=== PATIENT | female | born 1970 | race African-American/Black ===

== ENCOUNTER 2025-01-07 09:43 | Emergency (ER) | payer MEDICAID ==
[~2025-01-07] VITALS: Ht 165.1 cm; Wt 72.7 kg
--- NOTE | 2025-01-07 09:50 | ELECTROCARDIOGRAPH REPORT ---
[facility] Test Date: 2025-01-07 Test Time: 09:48:16 Pat Name: [facility] Department[facility]- [id number] Room: Gender: F [employer]: : 1970 Requested By: ANCELMO MARIE Order Number: [id number] Reading MD: Dr. Kofi Weaver Measurements Intervals [place] Rate: 98 P: 77 WA: 148 QRS: 57 QRSD: 85 T: 69 QT: 388 QTc: 496 Interpretive Statements Sinus rhythm Probable left atrial enlargement Anterior infarct, old Artifact in lead(s) I,II,III,aVR,aVL,aVF,V1,V2,V3,V4,V5,V6 and baseline wander in lead(s) V3 Electronically Signed On 01-17-2025 22:20:[address] Kofi Weaver Please click the below link to view image of tracing.
[2025-01-07 10:19] LABS: MEAN PLATELET VOLUME 8.3 FL (7.4-10.4); RED CELL DISTRIBUTION WIDTH 16.2 % (11.5-14.5)
--- NOTE | 2025-01-07 10:20 | Physician Documentation ---
History of Present Illness ~ Chief Complaint: Chest Pain Stated Complaint: CP Time Seen by MD: 10:13 HPI 54-year-old female presenting with acute onset chest pain that started about 20 minutes ago. She arrives here today along with a the questions. According states that they were driving from [place] to [employer] to go to the methadone clinic. While in the car the patient started developing chest pain. Patient states the pain is located in her left upper chest and radiates up into her neck. It is severe and debilitating. She also endorses some shortness of breath. Denies any fever, chills or any other associated symptoms. The patient recently had aortic surgery done at a different hospital a couple of months ago. Medication Reconciliation Allergies: Coded Allergies: No Known Allergies (Unverified , 01/07/25) Review of Systems All Other Systems at this time: Reviewed and Negative Physical Exam Vital Signs: Temperature: 97.2, Source: Oral, Heart Rate: 93, Respiratory Rate: 18, BP: 158/98, Pulse Oximetry: 100, Weight: 72.730 Physical Exam I have reviewed the triage vitals. CONST: Well developed and well nourished. In significant distress HENT: Head Atraumatic EYES: Pupils are equal, round and reactive to light. Normal conjunctiva NECK: Normal range of motion. Supple. CARDIO: Normal rate and regular rhythm. No murmurs, rubs, or gallops. S1, S2. PULM/CHEST: No respiratory distress. Lungs clear to auscultation. No wheeze ABD: Soft and nontender. Nondistended. Bowel sounds normal. No guarding. : Exam deferred MSK: No edema. No deformity. NEURO: Alert and oriented to person, place and time. Moving all extremities SKIN: Warm and dry. PSYCH: Anxious, tearful Progress Results/Orders Results/Orders Orders - ANCELMO MARIE MD Chest,Single View (01/07/25 09:46) Monitor (01/07/25 09:46) Saline Lock (01/07/25 09:46) Oxygen (01/07/25 09:46) Cta Aorta Disection (01/07/25 11:10) Completed Orders - ANCELMO MARIE MD Chest,Single View (01/07/25 09:46) Cbc/Diff (01/07/25 09:46) PBNP (01/07/25 09:46) Electrocardiogram (01/07/25 09:46) Hs Troponin I W Calculations (01/07/25 09:46) Hs Troponin I W Calculations (01/07/25 11:46) Morphine 4mg/Ml Inj. (Morphine Inj.) (01/07/25 10:15) Ondansetron Inj. (Zofran 4mg/2ml Vial) (01/07/25 10:15) Diazepam Inj (Valium Inj) (01/07/25 10:15) Aspirin 81mg Chew Tablet (Aspirin 81mg C (01/07/25 10:20) CMP (01/07/25 10:08) Diphenhydramine Inj (Benadryl Inj.) (01/07/25 10:45) Fentanyl/Pf (Fentanyl 0.05 Mg/Ml Syringe (01/07/25 10:45) Cta Aorta Disection (01/07/25 11:10) Normal Saline 500ml Iv Soln (Sodium Chlo (01/07/25 10:50) Fentanyl/Pf (Fentanyl 0.05 Mg/Ml Syringe (01/07/25 11:00) Iohexol 350mg/Ml 100ml (Omnipaque 350mg/ (01/07/25 10:57) Fentanyl/Pf (Fentanyl 0.05 Mg/Ml Syringe (01/07/25 10:58) Labetalol Inj. (Trandate 20 Mg/4ml Syrin (01/07/25 11:20) Normal Saline 250ml... W/Labetalol Inj. (01/07/25 11:45) Nicardipine-Ns 40mg/200ml Ivpb (Cardene- (01/07/25 11:50) Hydromorphone 1 Mg/Ml/Pf (Dilaudid Inj.) (01/07/25 11:50) Nicardipine-Ns 40mg/200ml Ivpb (Cardene- (01/07/25 12:05) Diazepam Inj (Valium Inj) (01/07/25 12:10) Haloperidol Lact. (Haldol) (01/07/25 12:25) Ketamine 10mg/Ml 20ml Inj (Ketamine 10mg (01/07/25 12:40) Lorazepam Inj (Ativan Inj) (01/07/25 14:20) Laboratory Tests Test 01/07/25 10:08 01/07/25 12:00 White Blood Count 5.9 Red Blood Count 4.40 Hemoglobin 11.4 L Hematocrit 36.0 Mean Corpuscular Volume 81.7 Mean Corpuscular Hemoglobin 25.9 L Mean Corpuscular Hemoglobin Concent 31.7 L Red Cell Distribution Width 16.2 H Platelet Count 264 Mean Platelet Volume 8.3 Neutrophils (%) (Auto) 47.4 Lymphocytes (%) (Auto) 41.2 Monocytes (%) (Auto) 7.1 Eosinophils (%) (Auto) 3.8 Basophils (%) (Auto) 0.5 Neutrophils # (Auto) 2.8 Lymphocytes # (Auto) 2.4 Monocytes # (Auto) 0.4 Eosinophils # (Auto) 0.2 Basophils # (Auto) 0.0 CBC Comment Sodium Level 139 Potassium Level 3.6 Chloride Level 103 Carbon Dioxide Level 27.3 Anion Gap 9 Blood Urea Nitrogen 18 Creatinine 0.95 H Estimated GFR/1.73 m2 61 BUN/Creatinine Ratio 18.9 Glucose Level 97 Calcium Level 9.0 Total Bilirubin 0.1 Aspartate Amino Transf (AST/SGOT) 17 Alanine Aminotransferase (ALT/SGPT) 14 Alkaline Phosphatase 79 Troponin I High Sensitivity 10 12 Pro-B-Type Natriuretic Peptide 172 H Total Protein 7.7 Albumin 3.5 Globulin 4.2 Albumin/Globulin Ratio 0.8 L Chemistry Comments Troponin I High Sens Percent Delta 20 Troponin I Hi Sens Absolute Change 2 EKG/XRAY/CT/US/VASC/MRI EKG : Additional Comment EKG as indicated by ED MD indicating normal sinus rhythm with a rate of 98 beats per minute, no ischemia, normal axis Chest X-Ray : Additional Comments CHEST RADIOGRAPH Indication: CP Technique: Single frontal view of the chest was obtained COMPARISON: None FINDINGS: Lines and Tubes: None Lungs: Clear Pleura: No effusion. No pneumothorax. Cardiomediastinal contours: Unremarkable Bones: Unremarkable IMPRESSION: No acute disease. CT : Impression CLINICAL INFORMATION: Sharp chest pain. History of recent TECHNIQUE:Axial CTA images of the chest were obtained after the uneventful administration of, abdomen, and pelvis 100 mL of Omnipaque 350 IV contrast. Coronal and sagittal reformatted images and MIP images were obtained, reviewed, and stored. One or more of the following dose reduction techniques were used: Automated exposure control. Adjustment of mA and/or kV according to patient size. CTDIvol = 19.03, 23.27, 0.07, 0.07 mGy DLP = 1308.1 mGy-cm COMPARISON: None FINDINGS: Aorta: Limited evaluation for intramural hematoma due to lack of precontrast images. Ascending aortic aneurysm measures up to 4.3 cm in diameter with dissec tion flap involving the ascending aorta, aortic arch, and descending thoracic aorta. There is an endovascular stent graft at the descending thoracic aorta. There is contrast in the false lumen at the level of the stent graft consistent with endoleak. There is narrowing of the endograft in the descending thoracic aorta due to mass effect by the false lumen. No definite CT evidence for prior surgery involving the ascending aorta, with the ascending aortic component of the dissection possibly new, although no previous imaging is available for comparison. The brachiocephalic artery, left common carotid artery, and left subclavian artery arise from the true lumen at the aortic arch. No abdominal aortic aneurysm or dissection. Patent origins of the celiac artery, SMA, bilateral renal arteries, and NISA. Pulmonary arteries: Limited limited evaluation for pulmonary embolism due to suboptimal contrast in the pulmonary arteries. Cardiac: Heart size is within normal limits. Moderate coronary artery calcification. Mediastinum/alfonzo: No mass or adenopathy. Lungs: No pneumothorax, pleural effusion, or focal consolidation. Scattered areas of subsegmental atelectasis are seen. Chest wall: No mass or other abnormality. Abdomen/pelvis: The liver, spleen, pancreas, and adrenal glands appear grossly unremarkable on limited arterial phase Postcontrast images. There are very small peripheral wedge-shaped areas of hypo enhancement in both kidneys, suspected very small infarcts. No small bowel obstruction. No free air or free fluid. Moderate stool in the colon. Uterus is surgically absent. Bladder is unremarkable. There is diastasis of the rectus abdominis muscles. Bones: No acute fracture or suspicious intraosseous lesions. IMPRESSION: 1. Ascending aortic aneurysm with dissection involving the ascending aorta, aortic arch, and descending thoracic aorta. There is a graft at the level of the descending thoracic aorta. There is contrast within the false lumen at the level of the graft consistent with endoleak. 2. Small wedge-shaped areas of hypo enhancement in both kidneys, likely small infarcts. 3. Additional findings as detailed above. 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 Patient presented with severe chest pain. Pain is very difficult to control. She was initially given 4 mg of IV morphine which did not improve her pain. She was then given a total of 125 mcg of IV fentanyl without improvement. Patient was also given 2 mg of IV Dilaudid finally. Patient was extremely anxious as well and required a total of 7.5 mg of IV diazepam as well as 10 mg of IM Haldol and 50 mg of IV Benadryl. The patient was difficult to get her pain and anxiety controlled and we did consider potential intubation for sedation and pain control however this is high risk given the nature of her aortic dissection. Finally after all of the medications were given the patient's pain and anxiety were able to be controlled. CT angiogram of the aorta did indicate a type a aortic dissection extending from the ascending aorta all the way down to the descending aorta through the graft with a endoleak. The patient's blood pressure was also elevated and she was started on both a labetalol drip as well as a nicardipine drip to control her pulse and blood pressure at around 60 beats per minute and a systolic blood pressure less than 120 respectively. I spoke with the Cardiothoracic surgery team at [facility] who accepted the patient for transfer. The patient will be transferred via air. Departure Disposition: 02 [facility]ORT TERM [facility]OSP[facility] Impression: Primary Impression: Type A aortic dissection Condition: Critical Referrals: NO PRIMARY CARE PROVIDER (PCP) Critical Care Note Total Time (mins): 120 Critical Care Note The very real possibility of a deterioration of this patient's condition required the highest level of my preparedness for sudden, emergent intervention. I provided critical care services, which included medication orders, frequent reevaluations of the patient's condition and response to treatment, ordering and reviewing test results, and discussing the case with various consultants. Excludes time spent performing separately billable procedures. The critical care time associated with the care of the patient was. Signature Scribe Signature: 1 Attestation: 1 ANCELMO MARIE MD Jan 07, 2025 10:20
--- NOTE | 2025-01-07 10:21 | RADIOLOGY REPORT ---
CHEST RADIOGRAPH Indication: CP Technique: Single frontal view of the chest was obtained COMPARISON: None FINDINGS: Lines and Tubes: None Lungs: Clear Pleura: No effusion. No pneumothorax. Cardiomediastinal contours: Unremarkable Bones: Unremarkable IMPRESSION: No acute disease.
[2025-01-07] MEDS: ondansetron/PF 4mg/2ml inj IV ONE (10:25)
[2025-01-07] MEDS: morphine 4 MG/ML inj SYRINge IV ONE (10:26)
[2025-01-07] MEDS: diazepam inj 5 MG/ML inj. IV ONE ×2 (10:26→12:13)
[2025-01-07] MEDS: fentaNYL/PF 50MCG/1 ML 2ML syringe IV ONE ×2 (10:48→10:59)
[2025-01-07 10:55] LABS: CREATININE 0.95 MG/DL (0.40-0.90); PRO BRAIN NATRIURETIC PEPTIDE 172 PG/ML (0-125); TOTAL CARBON DIOXIDE 27.3 MMOL/L (24-32); eCRCL 61 ML/MIN; eGFR 61 ML/MIN
[2025-01-07] MEDS: fentaNYL/PF 50MCG/1 ML 2ML syringe ONE (11:01)
[2025-01-07] MEDS: labetalol 20mg/4ml (5mg/ml) syringe IV ONE (11:21)
[2025-01-07] MEDS: normal saline 500ml IV soln 500 ML IV ONE (11:27)
[2025-01-07] MEDS: niCARDipine-NS 40mg/200ml IVPB 200 ML IV SCH ×2 (11:58→12:08)
--- NOTE | 2025-01-07 11:58 | RADIOLOGY REPORT ---
CLINICAL INFORMATION: Sharp chest pain. History of recent TECHNIQUE:Axial CTA images of the chest were obtained after the uneventful administration of, abdomen, and pelvis 100 mL of Omnipaque 350 IV contrast. Coronal and sagittal reformatted images and MIP images were obtained, reviewed, and stored. One or more of the following dose reduction techniques were used: Automated exposure control. Adjustment of mA and/or kV according to patient size. CTDIvol = 19.03, 23.27, 0.07, 0.07 mGy DLP = 1308.1 mGy-cm COMPARISON: None FINDINGS: Aorta: Limited evaluation for intramural hematoma due to lack of precontrast images. Ascending aortic aneurysm measures up to 4.3 cm in diameter with dissection flap involving the ascending aorta, aortic arch, and descending thoracic aorta. There is an endovascular stent graft at the descending thoracic aorta. There is contrast in the false lumen at the level of the stent graft consistent with endoleak. There is narrowing of the endograft in the descending thoracic aorta due to mass effect by the false lumen. No definite CT evidence for prior surgery involving the ascending aorta, with the ascending aortic component of the dissection possibly new, although no previous imaging is available for comparison. The brachiocephalic artery, left common carotid artery, and left subclavian artery arise from the true lumen at the aortic arch. No abdominal aortic aneurysm or dissection. Patent origins of the celiac artery, SMA, bilateral renal arteries, and NISA. Pulmonary arteries: Limited limited evaluation for pulmonary embolism due to suboptimal contrast in the pulmonary arteries. Cardiac: Heart size is within normal limits. Moderate coronary artery calcification. Mediastinum/alfonzo: No mass or adenopathy. Lungs: No pneumothorax, pleural effusion, or focal consolidation. Scattered areas of subsegmental atelectasis are seen. Chest wall: No mass or other abnormality. Abdomen/pelvis: The liver, spleen, pancreas, and adrenal glands appear grossly unremarkable on limited arterial phase Postcontrast images. There are very small peripheral wedge-shaped areas of hypo enhancement in both kidneys, suspected very small infarcts. No small bowel obstruction. No free air or free fluid. Moderate stool in the colon. Uterus is surgically absent. Bladder is unremarkable. There is diastasis of the rectus abdominis muscles. Bones: No acute fracture or suspicious intraosseous lesions. IMPRESSION: 1. Ascending aortic aneurysm with dissection involving the ascending aorta, aortic arch, and descending thoracic aorta. There is a graft at the level of the descending thoracic aorta. There is contrast within the false lumen at the level of the graft consistent with endoleak. 2. Small wedge-shaped areas of hypo enhancement in both kidneys, likely small infarcts. 3. Additional findings as detailed above. Critical findings Critical Result: Findings consistent with type a aortic dissection detailed above. Findings discussed with ANCELMO FARFAN at 01/07/2025 01:46 PM CDT, and acknowledged receipt and understanding of the findings. ..
[2025-01-07] MEDS: haloperidol lactate 5mg/ml inj IM ONE (12:30)
[2025-01-07] MEDS ORDERED: KETAMINE IV ONE (12:40)
[2025-01-07] MEDS ORDERED: NORMAL SALINE IV ONE (12:40)
[2025-01-07] MEDS: labetalol inj. 250 MG in normal saline 250ml IV soln 200 ML IV SCH (14:30)
[2025-01-07 14:58] VITALS: BP 110/65; PULSE 60; RESP 14; TEMP 97.8; O2SAT 99
== END 2025-01-07 14:55 | disposition short-term general hospital (02) ==
LOC: ER 09:43
DX: I71.010 Dissection of ascending aorta (principal); I71.012 Dissection of descending thoracic aorta; I71.011 Dissection of aortic arch; I25.2 Old myocardial infarction
CPT/HCPCS: 36415; 71045; 71275; 74174; 80053; 83880; 84484; 85025; 93005; 96365; 96366; 96367; 96372; 96375; 96376; 99291; J1171; J1200; J1630; J2060; J2270; J2405; J3010; J3360; J3490; J7040; J7050; Q9967; A4615